=== PATIENT | female | born 1965 | race Caucasian/White ===

== ENCOUNTER 2017-04-13 21:03 | Observation (INO) | payer MEDICAID, OTHER ==
[~2017-04-13] VITALS: Ht 157.5 cm; Wt 99.7 kg
[2017-04-13] MEDS: traZODone 50 MG TAB PO SCH (21:00)
[2017-04-13] MEDS: GABAPENTIN 100 MG CAP PO SCH (21:00)
[2017-04-13] MEDS: PENTOSAN POLYSULFATE SODIUM 100 MG CAP (ELMIRON) PO SCH (21:00)
[2017-04-13 22:35] VITALS: BP 136/64
[2017-04-13] MEDS ORDERED: AMLO25TA PO (22:58)
[2017-04-13] MEDS ORDERED: VENL75CA47 PO (22:58)
[2017-04-13] MEDS ORDERED: ASPI81TA21 PO (22:58)
[2017-04-13] MEDS ORDERED: TRAZ50TA4 PO (22:58)
[2017-04-13] MEDS ORDERED: OMEP20TA PO (22:58)
[2017-04-13] MEDS ORDERED: GABA-279 PO (22:58)
[2017-04-13] MEDS ORDERED: CLOP75TA2 PO (22:58)
[2017-04-13] MEDS ORDERED: PENT10CA PO (22:58)
[2017-04-13] MEDS ORDERED: HYDR25T PO (22:58)
[2017-04-13] MEDS ORDERED: ATOR1TAB18 PO (22:58)
[2017-04-14] MEDS ORDERED: ACETAMINOPHEN TAB 650MG DOSE (2X325MG) PO PRN (01:15)
[2017-04-14] MEDS: NS 1,000 ML IV SCH ×2 (01:42→12:25)
--- NOTE | 2017-04-14 02:37 | HPEPDOC ---
General Date of Admission Apr 13, 2017 at 22:35 Other Providers Chaucney Vergara Attending Physician: SAMUEL PARKER DO Chief Complaint The patient is a 52-year-old female admitted with a reason for visit of TIA. Source: Patient Exam Limitations: No limitations Timing/Duration: Momentarily, Intermittent, Resolved prior to arrival, This afternoon Severity: Mild Associated Symptoms: Weakness History of Present Illness 52-year-old female, history of CAD status post Stents twice CVA with no residual dysfunction, hypertensive, presented with sudden onset of left upper and lower extremity weakness. Patient was walking and all of a sudden she experienced weakness in left lower extremity. She was about to fall, but she hold the wall and then she experienced the left upper extremity weakness. This episode happened twice, first episode lasting for a few seconds and the second episode lasting about 4-5 minutes. Patient went to the emergency room of [facility]. A CT head, EKG, chest x-ray, troponin and physical examination was unremarkable.. Patient was sent to [facility] for overnight monitoring and neurologic consult if necessary. Home Medications Scheduled Amlodipine Besylate (Norvasc) 2.5 Mg Tab, 2.5 MG PO DAILY, (Reported) Aspirin (Aspir-Low) 81 Mg Tab, 81 MG PO DAILY, (Reported) Atorvastatin Calcium (Atorvastatin Calcium) 80 Mg Tab, 80 MG PO DAILY, (Reported ) Clopidogrel Bisulfate (Clopidogrel) 75 Mg Tab, 75 MG PO DAILY, (Reported) Gabapentin (Gabapentin) 100 Mg Cap, 100 MG PO TID, (Reported) Hydroxyzine HCl (Hydroxyzine HCl) 25 Mg Tab, 25 MG PO DAILY, (Reported) Omeprazole (Omeprazole) 20 Mg Tab, 20 MG PO DAILY, (Reported) Pentosan Polysulfate Sodium (Elmiron) 100 Mg Cap, 100 MG PO TID, (Reported) Trazodone HCl (Trazodone HCl) 50 Mg Tab, 50 MG PO QHS, (Reported) Venlafaxine HCl (Venlafaxine HCl ER) 75 Mg Capcr, 75 MG PO DAILY, (Reported) Allergies Coded Allergies: Cephalexin (Unverified Allergy, Intermediate, 04/13/17) Codeine (Unverified Allergy, Intermediate, 04/13/17) Sulfa Antibiotics (Unverified Allergy, Intermediate, 04/13/17) Past Medical History Medical History CAD, CVA, hypertensive Surgical History Cardiac cath hernia repair Family History Significant Family History: No pertinent family hx Social History * Smoker: less than 1 pack/day Alcohol: Denies Drugs: marijuana Recent Travel/Sick Contacts: Denies: Recent travel, Recent sick contacts Psychosocial History: No pertinent psych hx Review of Symptoms Constitutional: Reports: Weakness, Denies: Chills, Fever, Night Sweats Eyes: Denies: Pain, Vision change ENT: Denies: Head Aches, Ear Pain, Dysphagia Skin: Denies: Rash, Lesions, Breakdown Pulmonary: Denies: Dyspnea, Cough Cardiovascular: Denies: Chest Pain, Palpitations, Orthopnea, Paroxysmal Noc. Dyspnea, Lt Headedness Gastrointestinal: Denies: Nausea, Vomiting, Abdominal Pain, Diarrhea Genitourinary: Denies: Dysuria, Frequency, Incontinence, Retention Hematologic: Denies: Bruising, Bleeding Excessively Musculoskeletal: Denies: Neck Pain, Back Pain, Joint Pain, Muscle Pain, Spasms Neurological: Reports: Weakness, Numbness, Denies: Change in speech, Confusion Psych: Reports: Mood Normal, Denies: Depression, Memory Issues Physical Examination General Exam: Positive: Alert, No Acute Distress Eye Exam: Positive: PERRLA, Conjunctiva & lids normal, EOMI, Negative: Sclera icteric ENT Exam: Positive: Atraumatic, Mucous membr. moist/pink, Pharynx Normal Neck Exam: Positive: Supple, Negative: JVD, thyromegaly Chest Exam: Positive: Clear to auscultation, Normal air movement Heart Exam: Positive: Rate Normal, Regular Rhythm, Normal S1, Normal S2, Negative: Murmurs, Rubs Telemetry: Positive: No significant arrhythmia Abdomen Exam: Positive: Normal bowel sounds, Soft, Negative: Tenderness, Hepatospenomegaly Extremity Exam: Positive: Normal pulses, Negative: Clubbing, Cyanosis, Edema Skin Exam: Positive: Nl turgor and temperature, Negative: Breakdown, Lesion Neuro Exam: Positive: Normal Gait, Normal Speech, Cranial Nerves 3-12 NL, Reflexes 2+ Psych Exam: Positive: Mental status NL, Mood NL, Oriented x 3 Vital Signs Vital Signs Date Time Temp Pulse Resp B/P (MAP) Pulse Ox O2 Delivery O2 Flow Rate FiO2 04/13/17 22:35 96.4 74 20 136/64 (88) 100 Room Air Assessment/Plan 52-year-old female, history of CAD, CVA, hypertension, presented with left upper and lower extremity weakness. CT head, EKG, chest x-ray, troponin was unremarkable Problems (1) TIA (transient ischemic attack) Problem Text: CT head unremarkable. Get carotid Doppler, MRI brain and neurological checks. PT, OT (2) Tobacco abuse Problem Text: Daily nicotine patch (3) Depression Problem Text: Continue with the Effexor (4) Hypertension Problem Text: Continue with Norvasc (5) CAD (coronary artery disease) Problem Text: Continue with aspirin, Plavix, Lipitor Plan / VTE VTE Prophylaxis Ordered?: Yes Plan Diet: Continue Current Activity: Continue Current Therapy: PT Anticipated Discharge: Home COLTON MACHADO MD Apr 14, 2017 02:37
[2017-04-14 04:45] VITALS: BP 109/53
[2017-04-14 08:00] VITALS: BP 136/69
--- NOTE | 2017-04-14 10:34 | REP ---
CAROTID DUPLEX ULTRASOUND: 04/14/2017 CLINICAL HISTORY: TIA. FINDINGS: No comparison study. Standard duplex techniques were utilized. The right common carotid shows some mild intimal thickening with scattered soft and calcific plaque at the bulb extending to the proximal ICA. The left internal carotid artery also shows some intimal thickening with distal CCA soft and calcific plaque and into the bulb and proximal ICA. Peak Velocities: RIGHT LEFT CCA systolic 0.88 m/s 0.93 m/s ICA systolic 0.93 m/s 0.84 m/s ICA diastolic 0.39 m/s 0.41 m/s ECA systolic 0.82 m/s 0.96 m/s IC/CC ratio 1.05 0.91 Cranial direction of flow seen in the vertebral arteries bilaterally. The Doppler waveform analysis does not show significant spectral broadening or filling in of the systolic window for either side. IMPRESSION: 1. Less than 50% stenosis of the bilateral internal carotids by Doppler ultrasound criteria. No hemodynamically significant or flow restricting lesion. 2. Cranial direction of flow in the vertebral arteries. Signed by Brett Bucio MD 04/14/2017 07:53 P
[2017-04-14] MEDS: CLOPIDOGREL 75 MG TAB PO SCH (11:02)
[2017-04-14] MEDS: PENTOSAN POLYSULFATE SODIUM 100 MG CAP (ELMIRON) PO SCH ×3 (11:03→20:45)
[2017-04-14] MEDS: ASPIRIN 81 MG ENTERIC TAB PO SCH (11:03)
[2017-04-14] MEDS: GABAPENTIN 100 MG CAP PO SCH ×3 (11:03→20:45)
[2017-04-14] MEDS: NICOTINE 14 MG/24 HR TRANSDERMAL TD SCH (11:05)
[2017-04-14] MEDS: OMEPRAZOLE 20 MG CAP PO SCH (11:05)
[2017-04-14] MEDS: ATORVASTATIN 20 MG TAB PO SCH (11:05)
[2017-04-14] MEDS: VENLAFAXINE **XR** 75MG CAPSULE PO SCH (11:20)
--- NOTE | 2017-04-14 11:30 | REP ---
MRI BRAIN WITHOUT CONTRAST: 04/14/2017 COMPARISON: MRI/MRA brain 08/08/2015, carotid ultrasound 04/14/2017. CLINICAL HISTORY: TIA. Left-sided extremity numbness. FINDINGS: Sagittal T1 with axial T1, T2 FLAIR gradient-echo diffusion weighted images and ADC mapping sequences provided. FINDINGS: Ventricles are midline and symmetric and without dilatation. Third and fourth ventricles also intact. Basal ganglia symmetric and preserved. There are periventricular, deep central and subcortical white matter hyperintense T2 and FLAIR foci suggesting some small vessel white matter ischemic change. I see no intra or extra-axial hemorrhage, mass, mass effect or edema. No extra-axial fluid collections. The diffusion weighted images and ADC mapping sequences demonstrate no evidence of restricted water diffusion or acute ischemia. Brainstem and cerebellum are intact. There is a tiny cystic area or old lacunar infarct in the left cerebellar hemisphere unchanged. Basal cisterns are adequate. The seventh/eighth cranial nerve complexes are intact. There is some increased signal on T2 images and posterior lateral mastoids. This may reflect some chronic mild mastoiditis. Left frontal sinus and the frontoethmoid recess shows mucosal thickening with minimal mucosal thickening in some of the ethmoid air cells. The sphenoid sinuses clear. Minor mucosal thickening in the right maxillary sinus. No air-fluid levels. Corpus callosum, optic chiasm and pituitary are normal. There is no cerebellar tonsillar ectopia on the sagittal images. IMPRESSION: 1. Some chronic small vessel white matter ischemic changes without acute infarct, hemorrhage, mass or mass effect. Old lacunar infarct suggested left cerebellar hemisphere with tiny cystic area stable. 2. Midline structures unremarkable. 3. Some minor bilateral mastoid opacity, chronic. 4. There is no ventriculomegaly or atrophy. Signed by Brett Bucio MD 04/14/2017 07:57 P
[2017-04-14 11:50] VITALS: BP 126/56
--- NOTE | 2017-04-14 15:15 | IPNPDOC ---
Subjective Date Seen The patient was seen on 04/14/17. Subjective Chief Complaint/HPI The patient is a 52-year-old female admitted with a reason for visit of TIA. Constitutional: Denies: Chills, Fever, Night Sweats Cardiovascular: Denies: Chest Pain, Palpitations, Orthopnea, Paroxysmal Noc. Dyspnea, Lt Headedness Objective Physical Examination General Exam: Positive: Alert, No Acute Distress Eye Exam: Positive: PERRLA, Conjunctiva & lids normal, EOMI, Negative: Sclera icteric ENT Exam: Positive: Atraumatic, Mucous membr. moist/pink, Pharynx Normal Neck Exam: Positive: Supple, Negative: JVD, thyromegaly Chest Exam: Positive: Clear to auscultation, Normal air movement Heart Exam: Positive: Rate Normal, Regular Rhythm, Normal S1, Normal S2, Negative: Murmurs, Rubs Telemetry: Positive: No significant arrhythmia Abdomen Exam: Positive: Normal bowel sounds, Soft, Negative: Tenderness, Hepatospenomegaly Extremity Exam: Positive: Normal pulses, Negative: Clubbing, Cyanosis, Edema Skin Exam: Positive: Nl turgor and temperature, Negative: Breakdown, Lesion Neuro Exam: Positive: Normal Gait, Normal Speech, Cranial Nerves 3-12 NL, Reflexes 2+ Psych Exam: Positive: Mental status NL, Mood NL, Oriented x 3 Assessment /Plan Problems (1) TIA (transient ischemic attack) Problem Text: * CT head unremarkable. Get carotid Doppler less than 50% stenosis, MRI brain showed old left lacunar infarct * neurological checks. PT, OT * echo pending * continue to monitor on tele (2) Tobacco abuse Problem Text: Daily nicotine patch (3) Depression Problem Text: Continue with the Effexor (4) Hypertension Problem Text: Continue with Norvasc (5) CAD (coronary artery disease) Problem Text: Continue with aspirin, Plavix, Lipitor Plan/VTE VTE Prophylaxis Ordered?: Yes Plan Diet: Continue Current Activity: Continue Current Therapy: PT Anticipated Discharge: Home VS, I&O, 24H, Fishbone Vital Signs/I&O Vital Signs Date Time Temp Pulse Resp B/P (MAP) Pulse Ox O2 Delivery O2 Flow Rate FiO2 04/14/17 11:50 98.9 71 20 126/56 (79) 98 Room Air I&O- Last 24 Hours up to 6 AM 04/14/17 06:00 Intake Total 400 ml Output Total 0 ml Balance 400 ml Laboratory Data 24H LABS Laboratory Tests 2 04/14/17 07:14: Total Creatine Kinase 57, Creatine Kinase MB 1.0, Creatine Kinase MB Relative Index 1.75, Troponin I 0.11H SAMUEL PARKER DO Apr 14, 2017 15:15
[2017-04-14 16:00] VITALS: BP 120/58
[2017-04-14 20:00] VITALS: BP 138/65
[2017-04-14] MEDS: traZODone 50 MG TAB PO SCH (20:45)
[2017-04-14 23:59] VITALS: BP 122/67
[2017-04-15 04:45] VITALS: BP 106/57
[2017-04-15 05:48] LABS: MEAN CORPUSCULAR HEMOGLOBIN 29.5 pg (27.0-33.0); MEAN CORPUSCULAR HGB CONC 33.2 g/dl (32.0-36.5); MEAN CORPUSCULAR VOLUME 88.8 fl (80.0-96.0); RED CELL DISTRIBUTION WIDTH 13.5 % (11.5-14.5); WHITE BLOOD COUNT 7.5 K/mm3 (4.0-10.0)
[2017-04-15 05:52] LABS: ALBUMIN 2.9 GM/DL (3.2-5.2); ALBUMIN/GLOBULIN RATIO 0.91 (1.00-1.93); ALKALINE PHOSPHATASE 79 U/L (45-117); ALT/SGPT 14 U/L (12-78); ANION GAP 7 MEQ/L (8-16); AST/SGOT 7 U/L (15-37); BILIRUBIN,TOTAL 0.2 MG/DL (0.2-1.0); BLOOD UREA NITROGEN 9 MG/DL (7-18); CALCIUM LEVEL 8.6 MG/DL (8.5-10.1); CARBON DIOXIDE LEVEL 24 MEQ/L (21-32); CHLORIDE LEVEL 110 MEQ/L (98-107); CREATININE FOR GFR 0.57 MG/DL (0.55-1.02); GLOMERULAR FILTRATION RATE > 60.0 (>51); GLUCOSE, FASTING 99 MG/DL (70-105); POTASSIUM SERUM 3.7 MEQ/L (3.5-5.1); SODIUM LEVEL 141 MEQ/L (136-145); TOTAL PROTEIN 6.1 GM/DL (6.4-8.2)
[2017-04-15 07:30] VITALS: BP 126/77
[2017-04-15] MEDS ORDERED: NICO14PA TD (08:17)
[2017-04-15] MEDS: CLOPIDOGREL 75 MG TAB PO SCH (08:31)
[2017-04-15] MEDS: GABAPENTIN 100 MG CAP PO SCH (08:31)
[2017-04-15] MEDS: NICOTINE 14 MG/24 HR TRANSDERMAL TD SCH (08:31)
[2017-04-15] MEDS: PENTOSAN POLYSULFATE SODIUM 100 MG CAP (ELMIRON) PO SCH (08:31)
[2017-04-15 08:32] VITALS: BP 126/77
[2017-04-15] MEDS: ATORVASTATIN 20 MG TAB PO SCH (08:32)
[2017-04-15] MEDS: ASPIRIN 81 MG ENTERIC TAB PO SCH (08:32)
[2017-04-15] MEDS: OMEPRAZOLE 20 MG CAP PO SCH (08:32)
--- NOTE | 2017-04-15 08:37 | DSES ---
DATE OF ADMISSION: 04/13/2017 DATE OF DISCHARGE: PRINCIPAL DIAGNOSIS: Transient ischemic attack (TIA), left-sided weakness. The patient leaving against medical advice. HISTORY: Sudeep Emery was admitted with a TIA. She had left-sided weakness. She was admitted for therapy. Details in history and physical from admission. HOSPITAL COURSE: The patient admitted to a progressive care unit (PCU) bed. MRI scan did not show any acute infarct. An ultrasound showed less than 50% stenosis bilaterally. Echocardiogram has been ordered. Results are pending. I do not have them back yet. She said Dr. Weston was reading it, and he is her research professor of biostatistics. Plans were to continue her on telemetry for today. She is saying she is going to leave against medical advice and is insisting on discharge. She has a history of leaving against medical advice in the past. She understands the risks of this: Stroke, , disability, and decreased quality of life. Understands and accepts this. On examination today, her blood pressure (BP) is 126/77, pulse 72, respiratory rate 18, 100% oxygen (O2) saturation on room air. No facial droop or weakness. Lungs clear. Heart: Regular rate and rhythm without murmur. Abdomen: Soft, nontender. Normal coordination, strength, reflexes, and sensation on neurologic examination. LABORATORIES: CMP unremarkable. CBC normal. Troponin times three were flat at 0.1. DISPOSITION: She will be discharged home on Norvasc 2.5 mg daily, aspirin 81 mg daily, Lipitor 80 mg daily, Plavix 75 mg daily, omeprazole 20 mg daily, Effexor XR 75 mg daily, nicotine 14 mg per day patch, Neurontin 100 mg three times a day, Elmiron 100 mg three times a day, trazodone 50 mg nightly. Activity as tolerated. [id number] diet. Advised smoking cessation. The risks of this were also detailed. She is to followup with her primary care provider next week. She understands that she is leaving prior to anticipated duration of stay and accepts the risks of this.
[2017-04-15] MEDS: VENLAFAXINE **XR** 75MG CAPSULE PO SCH (08:57)
--- NOTE | 2017-04-15 10:41 | ECHO ---
DATE OF PROCEDURE: 04/15/2017 REFERRING PROVIDER: Dr. Rodrick Jaramillo REASON FOR THE ECHOCARDIOGRAM: TIA. 2D MEASUREMENT: IVS - 0.9 cm LV - 5.3 cm LVPW - 1.0 cm LA - 3.6 cm Aorta - 2.8 cm IVC - 1.6 cm DOPPLER MEASUREMENT: Peak velocity across the aortic valve - 1.2 m/s Peak velocity across the LVOT - 0.99 m/s Mitral E - 1.0, Mitral A - 1.1 with a ratio of 0.9 2D COMMENTS: 1. Technically limited study due to poor acoustic window secondary to lung interference. 2. Normal left ventricular size, wall thickness and normal global left ventricular systolic function. The estimated left ventricular systolic ejection fraction is 60-65%. 3. Normal left atrium. The right atrium and the right ventricle appear to be normal in limited views. 4. The atrial septum appear to be normal without evidence of defect or shunt. 5. Normal aortic root. 6. Trace pericardial effusion was noted, no evidence of cardiac tamponade. 7. The aortic valve appeared to be normal in limited views. Mildly calcified mitral annulus with normal anterior mitral valve leaflet motion. Normal tricuspid valve. The pulmonic valve and proximal pulmonary artery branches were not well visualized. 8. The inferior vena cava was normal in size, central venous pressure is probably normal. DOPPLER: Only mild mitral regurgitation detected. Abnormal relaxation patter was noted across the mitral valve leaflets as well as the mitral valve annulus consistent with grade 1 left ventricular diastolic dysfunction. IMPRESSION: 1. Technically limited study due to poor acoustic window. 2. Normal global left ventricular systolic function with features of left ventricular diastolic dysfunction, grade 1. 3. Mitral annulus calcification with mild mitral regurgitation. MTDD
== END 2017-04-15 09:23 | disposition left against medical advice (07) ==
LOC: INTOOBSV 22:35 → M PCU 22:35
PROVIDERS: ADMIT Internal Medicine; ATTEND Internal Medicine
DX: G45.9 Transient cerebral ischemic attack, unspecified (principal); I25.10 Atherosclerotic heart disease of native coronary artery without angina pectoris; Z98.61 Coronary angioplasty status; I10 Essential (primary) hypertension; Z79.82 Long term (current) use of aspirin; Z79.899 Other long term (current) drug therapy; Z88.2 Allergy status to sulfonamides; Z88.8 Allergy status to other drugs, medicaments and biological substances; F32.9 Major depressive disorder, single episode, unspecified; Z79.02 Long term (current) use of antithrombotics/antiplatelets

== ENCOUNTER → 2018-12-02 | Outpatient (REF) | payer OTHER ==
[~2018-12-02] MED LIST: AMLO25TA PO; ASPI81TA21 PO; ATOR80TA59 PO; CLOP75TA2 PO; GABA-1171 PO; HYDR-3363 PO; NICO14PA TD; OMEP20TA PO; PENT10CA PO; TRAZ-160 PO; VENL75CA47 PO
[2018-12-06 00:08] LABS: ANCA-ATYPICAL <1:20 titer (Neg:<1:20); ANTI DOUBLE STRAND-DNA AB 9 IU/mL (0-9); ANTINUCLEAR ANTIBODIES DIRECT Negative (Negative); CYTOPLASMIC NEUTROP AB ANCA-C <1:20 titer (Neg:<1:20); PERINUCLEAR AB ANCA-P <1:20 titer (Neg:<1:20); RNP ANTIBODIES <0.2 AI (0.0-0.9); SJOGREN'S ANTI SS-A <0.2 AI (0.0-0.9); SJOGREN'S ANTI SS-B <0.2 AI (0.0-0.9); SMITH ANTIBODIES <0.2 AI (0.0-0.9)
== END ==
LOC: M LAB REF 17:12
PROVIDERS: ATTEND Internal Medicine Pulmonary Disease
DX: R91.8 Other nonspecific abnormal finding of lung field (principal)